=== PATIENT | male | born 1935 | race Caucasian/White ===

== ENCOUNTER → 2017-12-31 14:46 | Outpatient (CLI) | payer MEDICARE, MEDICAID, SELFPAY ==
[2017-12-31 15:12] LABS: Basophils # 0.1 K/mm3 (0-0.2); Basophils % 0.6 % (0.1-2.0); Eosinophils # 0.2 K/mm3 (0.0-0.4); Eosinophils % 1.5 % (0.1-12.0); Hematocrit 44.3 % (42.0-52.0); Hemoglobin 13.8 g/dL (14.1-18.0); Lymphocytes # 5.2 K/mm3 (0.7-4.5); Lymphocytes % 52.9 K/mm3 (10-50); Mean Corpuscular HGB Conc 31.1 g/dL (31.8-35.4); Mean Corpuscular Hemoglobin 28.8 pg (27.0-31.2); Mean Corpuscular Volume 92.8 fl (80-94); Mean Platelet Volume 7.6 fl (7.4-10.4); Monocytes # 0.4 K/mm3 (0.1-1.0); Monocytes % 3.6 % (1.7-9.3); Neutrophils # 4.1 K/mm3 (1.8-7.8); Neutrophils % 41.3 % (37.0-80.0); Platelet Count 181 K/mm3 (142-424); Red Blood Count 4.77 M/mm3 (4.60-6.20); Red Cell Distribution Width 14.1 % (11.5-17.5); White Blood Count 9.8 K/mm3 (4.8-10.8)
[2017-12-31 16:04] LABS: MANUAL DIFFERENTIAL MANUAL DIFFERENTIAL (MANUAL DIFF)
[2017-12-31 17:30] LABS: Potassium 5.1 mmoL/L (3.5-5.1)
[2017-12-31 17:53] LABS: Alanine Aminotransferase 14 U/L (12-78); Albumin Level 3.9 gm/dL (3.4-5.0); Albumin/Globulin Ratio 1.3 (1.1-1.8); Alkaline Phosphatase 101 U/L (46-116); Anion Gap 9.1 mEq/L (5-15); Aspartate Amino Transferase 11 U/L (15-37); Blood Urea Nitrogen 36 mg/dL (7-18); Calcium 9.1 mg/dL (8.5-10.1); Carbon Dioxide 33 mmol/L (21.0-32.0); Chloride 104 mmol/L (98-107); Chol/HDL Ratio 4.7 (1-3.5); Cholesterol 270 mg/dL (140-200); Creatine Kinase 42 U/L (39-308); Creatinine,Serum 2.34 mg/dL (0.70-1.30); Estimated Glomerular Filt Rate 27 ml/min (>60); Free Thyroxine Index 2.8 ug/dL (5.93-13.13); GFR (African American) 33 ML/MIN (>60); Globulin 3.1 gm/dl (1.3-3.2); Glucose 111 mg/dL (74-106); HDL Cholesterol 57 mg/dL (27-67); LDL Cholesterol 197 mg/dL (0-130); Sodium 141 mmol/L (136-145); T4 (Thyroxine) 8.1 ug/dl (4.7-13.3); Thyroid Stimulating Hormone 1.83 uIU/ml (0.358-3.740); Triglycerides 79 mg/dL (30-200); Triiodothryronine (T3) Uptake 34 % (31-39); VLDL Cholesterol 16 mg/dL (0-40)
[2017-12-31 18:29] LABS: Lymphocytes % 55 % (10-50); Monocytes % 1 % (2-9); Neutrophils % 44 % (42-76); Total Cells Counted 100
[2017-12-31 18:30] LABS: Platelet Estimate Normal; RBC Morphology Normal
[2018-01-05 06:15] LABS: Vitamin D 25 Hydroxy 26.2 ng/mL (30.0-100.0)
== END ==
PROVIDERS: Visit Provider Internal Medicine Adolescent Medicine
DX: R63.4 Abnormal weight loss (principal); I25.10 Atherosclerotic heart disease of native coronary artery without angina pectoris; M54.5 Low back pain
CPT/HCPCS: 36415; 80053; 80061; 82550; 82652; 84436; 84443; 84479; 85007; 85025

== ENCOUNTER → 2018-02-04 14:49 | Outpatient (CLI) | payer MEDICARE, MEDICAID, SELFPAY ==
--- NOTE | 2018-02-04 15:34 | XR_ITS ---
EXAM: XR lumbar spine min 4V HISTORY: ITS.REASON: LOW BACK PAIN,RT HIP PAIN ORDERING PHYSICIAN: Sid Foy MD PATIENT AGE: 82 years COMPARISON: None FINDINGS: There is degenerative disc disease within the lumbar spine from T12 to S1 worse at L2 L3 L3 L4 L4 L5 and L5-S1. There are endplate osteophytes these levels as well. Bridging osteophyte is present on the left at L2-L3. There is minimal lumbar curvature convex right. Facet sclerotic changes are present at L4-5 and L5-S1. There is mild anterolisthesis of L5 on S1 of 5 mm with bilateral pars defect at that level. No acute fracture or dislocation. There are surgical clips in right upper quadrant and left upper quadrant and there is an iliac artery stent on the left. IMPRESSION: 1. 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 2. 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
--- NOTE | 2018-02-04 15:34 | XR_ITS ---
XR hip RT 2-3V w/pelvis HISTORY: ITS.REASON: LOW BACK PAIN,RT HIP PAIN ORDERING PHYSICIAN: Sid Foy MD PATIENT AGE: 82 years COMPARISON: None FINDINGS: There are mild osteoarthritic changes of the right hip with slight decrease in joint space superiorly and minimal osteosclerosis of the acetabular roof. No fracture or dislocation. No lytic or blastic change. Atherosclerotic vascular calcification present IMPRESSION: Minimal osteoarthritis right hip
== END ==
PROVIDERS: PCP Internal Medicine Adolescent Medicine; Visit Provider Internal Medicine Adolescent Medicine
DX: M54.5 Low back pain (principal); M25.551 Pain in right hip; R63.4 Abnormal weight loss
CPT/HCPCS: 72110; 73502

== ENCOUNTER → 2018-02-22 10:00 | Outpatient (CLI) | payer MEDICARE, MEDICAID, SELFPAY ==
--- NOTE | 2018-02-22 10:03 | CT_ITS ---
CT chest wo con HISTORY: ITS.REASON: DYSPEA, WGT LOSS, ABD MASS ORDERING PHYSICIAN: Veronika Hadley PATIENT AGE: 82 years COMPARISON: none Technique: Axial images obtained with sagittal and coronal reformats. All CT scans at the facility use one or more dose reduction, viz: automated exposure control, ma/kV adjustment per patient size (including targeted exams where dose is matched to indication, i.e. head), or iterative reconstruction technique. FINDINGS: There is mild cardiomegaly. Coronary artery calcifications are present. There has been a prior CABG. Contrast is present within the esophagus and may be related to reflux. There is mild dilatation of the proximal descending thoracic aorta at 3.6 cm. The study is limited without IV contrast. There is a rind of increased soft tissue density along the right upper lobe anteriorly abutting the mediastinum. There is an oval 6 x 4 cm area of soft tissue density in the right lung base posteriorly with a few peripheral air bronchograms. This could represent mass or dense consolidation.. Small amount of loculated fluid is present on the right posteriorly with some mild pleural thickening. The left lung is clear. No acute bony anomalies. IMPRESSION: 1. Right lower lobe mass versus dense consolidation. Bronchoscopy may be of further value. 2. Complex pleural thickening in the right lung base posteriorly with small pleural effusion.] Increased soft tissue density is present in the right upper lobe medially. The chronicity of these findings is uncertain. This could be fibrotic changes or due to volume loss. Follow-up is recommended. 3. Prior CABG with cardiomegaly. 4. Contrast within the esophagus suggesting reflux
--- NOTE | 2018-02-22 10:03 | CT_ITS ---
CT abdomen pelvis wo con CLINICAL INDICATION: ITS.REASON: DYSPEA, WGT LOSS, ABD MASS ORDERING PHYSICIAN: Veronika Hadley PATIENT AGE: 82 years COMPARISON: None TECHNIQUE: Axial images obtained with sagittal and coronal reformats. All CT scans at the facility use one or more dose reduction, viz: automated exposure control, ma/kV adjustment per patient size (including targeted exams where dose is matched to indication, i.e. head), or iterative reconstruction technique. PROCEDURE: Oral Contrast: None IV Contrast: None . FINDINGS: There has been prior cholecystectomy. The liver, spleen, adrenal glands, and left kidney are unremarkable. 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 There is pancreatic atrophy. There is a mild amount retained colonic feces. No renal or ureteral calculi. No evidence of appendicitis or diverticulitis. No intestinal obstruction or free air. There are scattered diverticula within the colon. No aortic aneurysm. No abdominal mass or abnormal fluid collection. No abdominal masses are evident. There are mild adjacent changes of the lumbar spine. IMPRESSION: 1. No acute finding. 2. Right renal atrophy and pancreatic atrophy. 3. No abdominal mass or abnormal fluid collection.
== END ==
PROVIDERS: Family Provider Internal Medicine Adolescent Medicine; PCP Internal Medicine Adolescent Medicine; Visit Provider Nurse Practitioner Family
DX: R63.4 Abnormal weight loss (principal); R19.01 Right upper quadrant abdominal swelling, mass and lump; R06.09 Other forms of dyspnea
CPT/HCPCS: 71250; 74176

== ENCOUNTER 2018-04-17 17:29 | Inpatient (IN) ==
[2018-04-17 18:12] LABS: Basophils % 0.4 % (0.1-2.0); Eosinophils % 0.3 % (0.1-12.0); Hematocrit 43.1 % (42.0-52.0); Hemoglobin 12.8 g/dL (14.1-18.0); Lymphocytes # 2.6 K/mm3 (0.7-4.5); Lymphocytes % 35.3 K/mm3 (10-50); Mean Corpuscular HGB Conc 29.7 g/dL (31.8-35.4); Mean Corpuscular Hemoglobin 29.5 pg (27.0-31.2); Mean Corpuscular Volume 99.5 fl (80-94); Mean Platelet Volume 8.8 fl (7.4-10.4); Monocytes # 0.3 K/mm3 (0.1-1.0); Monocytes % 3.8 % (1.7-9.3); Neutrophils # 4.4 K/mm3 (1.8-7.8); Neutrophils % 60.2 % (37.0-80.0); Platelet Count 134 K/mm3 (142-424); Red Blood Count 4.33 M/mm3 (4.60-6.20); Red Cell Distribution Width 13.4 % (11.5-17.5); White Blood Count 7.3 K/mm3 (4.8-10.8)
[2018-04-17 18:27] LABS: Albumin Level 3.8 gm/dL (3.4-5.0); Anion Gap 1.1 mEq/L (5-15); Calcium 9.3 mg/dL (8.5-10.1); Globulin 3.7 gm/dl (1.3-3.2); Potassium 5.6 mmoL/L (3.5-5.1); Total Protein,Serum 7.5 gm/dL (6.4-8.2)
[2018-04-17 18:37] LABS: Thyroid Stimulating Hormone 2.06 uIU/ml (0.358-3.740)
[2018-04-17 18:51] LABS: Free Thyroxine Index 2.9 ug/dL (5.93-13.13); T4 (Thyroxine) 8.1 ug/dl (4.7-13.3)
--- NOTE | 2018-04-17 19:43 | Emergency Department Note ---
ED Disposition Clinical Impression: Acute respiratory failure with hypoxia and hypercapnia, Precordial chest pain Congestive heart failure Qualifiers: Heart failure type: unspecified Heart failure chronicity: acute Qualified Code(s): I50.9 - Heart failure, unspecified Disposition: Still a Patient Condition on Discharge: Serious Referrals: Sid Foy MD [Primary Care Provider] - - Critical Care Critical Care Time: Yes Attestation: On 04/17/18, the high probability of a clinically significant, sudden or life threatening deterioration of the following system(s) required my full and direct attention, intervention and personal management. The time I documented below is in addition to time spent performing reported procedures but includes the following listed in this critical care notation. Total Critical Care Time: 40 Vital system(s) involved:: Respiratory Failure My critical care processes included: Assessment & monitoring of V/S, Initial and Re-exams, Data Review/Interpretation, Coordinating Care, Medication Orders and management, Documentation Medical Decision Making - Mynor Inquiry Pt receiving controlled substance: Yes Mynor was queried for this patient: No Reason not queried -: Emergent pt cond-no time Risks and benefits of using a controlled substance: were not discussed with pt by me Vital Signs: 04/17/18 17:27 04/17/18 17:57 04/17/18 18:00 Temperature 98.3 F 98.3 F Temperature Source Oral Oral Pulse Rate [Right Brachial] 94 H 88 92 H Respiratory Rate 28 H Blood Pressure [Right Arm] 152/82 H 138/96 H 160/92 H Blood Pressure Mean [Right Arm] 105 110 114 Blood Pressure Source [Right Arm] Automatic Cuff Automatic Cuff Automatic Cuff Blood Pressure Position [Right Arm] Sitting Sitting Sitting 02 Sat by Pulse Oximetry 98 100 93 L Oxygen Delivery Method Nasal Cannula Non-Rebreather Non-Rebreather Oxygen Flow Rate (LPM) 5 04/17/18 18:30 04/17/18 20:15 04/17/18 20:51 Temperature Temperature Source Pulse Rate [Right Brachial] 91 H 87 Respiratory Rate 14 Blood Pressure [Right Arm] 149/80 H 149/81 H 149/81 H Blood Pressure Mean [Right Arm] 103 103 103 Blood Pressure Source [Right Arm] Automatic Cuff Blood Pressure Position [Right Arm] Sitting 02 Sat by Pulse Oximetry 100 98 Oxygen Delivery Method Non-Rebreather BiPAP Oxygen Flow Rate (LPM) 04/17/18 21:07 11/04/18 21:30 Temperature Temperature Source Pulse Rate [Right Brachial] 78 77 Respiratory Rate 20 20 Blood Pressure [Right Arm] 136/66 120/63 Blood Pressure Mean [Right Arm] 89 82 Blood Pressure Source [Right Arm] Automatic Cuff Automatic Cuff Blood Pressure Position [Right Arm] Sitting Supine 02 Sat by Pulse Oximetry 99 99 Oxygen Delivery Method BiPAP BiPAP Oxygen Flow Rate (LPM) - Lab Data Lab Results 04/17/18 17:55: WBC 7.3, RBC 4.33 L, Hgb 12.8 L, Hct 43.1, MCV 99.5 H, MCH 29.5, MCHC 29.7 L, RDW 13.4, Plt Count 134 L, MPV 8.8, Neut % (Auto) 60.2, Lymph % (Auto) 35.3, [place] % (Auto) 3.8, Eos % (Auto) 0.3, Baso % (Auto) 0.4, Neut # (Auto) 4.4, Lymph # (Auto) 2.6, [place] # (Auto) 0.3, Eos # (Auto) 0.0, Baso # (Auto) 0.0 04/17/18 17:55: Sodium 138, Potassium 5.6 H, Chloride 99, Carbon Dioxide 38 H, Anion Gap 1.1 L, BUN 39 H, Creatinine 2.21 H, Estimated Creat Clear 27, Estimated GFR 29 L, Est GFR ( Amer) 35 L, Glucose 115 H, Calcium 9.3, Total Bilirubin 1.0, AST 11 L, ALT 13, Alkaline Phosphatase 98, Total Creatine Kinase 51, CK-MB (CK-2) 1.2, CK-MB (CK-2) Rel Index 2.4, Troponin I 0.08 H, Total Protein 7.5, Albumin 3.8, Globulin 3.7 H, Albumin/Globulin Ratio 1.0 L 04/17/18 17:55: B-Natriuretic Peptide 1750 H 04/17/18 17:55: TSH 2.06, Free T4 Index 2.9 L, Thyroxine (T4) 8.1, T3 Uptake 36 04/17/18 20:30: Lactate 0.4 04/17/18 20:47: Specimen Source R/f, O2 % 100, ABG pH 7.17 L*, ABG pCO2 123.5 H, ABG pO2 113.1 H, ABG HCO3 44.0 H, ABG Total CO2 47.8 H, ABG O2 Saturation 98, ABG Base Excess 15.5 H, Ousmane Test Y Result diagrams: 04/17/18 17:55 04/17/18 17:55 Orders (Tests/Meds): ED MEDICATIONS Generic Name Dose Route Start Last Admin Trade Name Freq PRN Reason Stop Dose Admin Nitroglycerin 0.4 mg 04/17/18 20:07 04/17/18 20:15 Nitrostat 0.4mg Sl Tablet SL 05/17/18 20:06 0.4 mg Q5MINP PRN Administration Chest Pain Discontinued Medications Generic Name Dose Route Start Last Admin Trade Name Freq PRN Reason Stop Dose Admin Aspirin 324 mg 04/17/18 20:42 04/17/18 20:53 Aspirin 81mg Chewable Tablet PO 04/17/18 20:43 324 mg ONCE ONE Administration Furosemide 80 mg 04/17/18 20:46 04/17/18 20:54 Lasix 40mg/4ml Vial IV 04/17/18 20:47 80 mg ONCE ONE Administration Morphine Sulfate 4 mg 04/17/18 20:08 04/17/18 20:15 Morphine 4mg/Ml Syringe IV 04/17/18 20:09 4 mg ONCE ONE Administration Nitroglycerin 1 gm 04/17/18 20:18 04/17/18 20:53 Nitroglycerin 1 Inch Oint Udp TD 04/17/18 20:19 1 gm ONCE ONE Administration ORDERS Category Date Time Status XR chest portable Stat Exams 04/17/18 18:02 Taken Blood Culture Stat Micro 04/17/18 20:30 Received ABG [Arterial Blood Gas] Stat RT 04/17/18 18:02 Ordered - Physician Consults Physician Consulted: Emely Foy Time: 21:30 Reason -: Admission Comment/Response: Agrees to admit the patient to the hospital. We discussed the patient's clinical information, including history, exam, laboratory and radiology results and ED course. Per hospital procedure, I will write temporary bridge inpatient orders on the patient. Specific orders requested by the admitting physician: Continue BiPAP, repeat Lasix 80 mg in 6 hours. Repeat ABGs in 6 hours. Medical Decision Narrative: Discussed advanced directives with the patient. He states that he does not want to be intubated or put on a ventilator, but indicates he would want chest compressions, medications, and cardioversion/defibrillation if needed. 9:10 PM: States breathing feels better on BiPAP. 9:50 PM: Family reports patient is now DNR. General Adult HPI - General Chief complaint: Shortness of Breath/Dyspnea Stated complaint: WEAKNESS Time Seen by Provider: 04/17/18 19:45 Mode of Arrival: EMS Limitations: No Limitations Description of Symptoms (Recalled from ER Triage Doc. by RN): INCREASINGLY PROGRESSIVE WEAKNESS; PT STATES HE HASN'T BEEN ABLE TO TAKE IN MUCH INTAKE DUE TO SOA R/T LUNG MASS. FAMILY THINKS HE MIGHT HAVE HAD A STROKE. - History of Present Illness HPI narrative: Brought in for generalized weakness and difficulty breathing. Family states that he has had a decline since March 14 at which time he was diagnosed with a right lung mass. He recently had a bronchoscopy at which time he developed hypoxia and required an overnight stay. He was discharged and then on 3 days ago had a right lung biopsy as an outpatient. Procedures were done at [facility]. Family states that surgeons they have told him that he has an inoperable lung mass. Tissue type is not known, but they have told him that he should be enrolled in hospice. They have advised that chemotherapy or radiation would likely be more harmful than helpful given his chronic problems with heart and kidney disease. He is getting progressively weaker, requiring assistance to even walk to the bathroom. Increasingly short of breath. He is having chest pain and taking nitroglycerin every 30-60 minutes for the past few days. Nausea. One episode of diarrhea this morning, but had constipation yesterday and was given a stool softener. Denies fever. He does have a cough. 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 - Related Data Home Medications Medication Instructions Recorded Confirmed Amlodipine Besylate 1 tab PO DAILY 04/17/18 04/17/18 Nitroglycerin 1 tab PO DAILY 04/17/18 04/17/18 Ranolazine [Ranexa 500mg ER tablet] 1 tab PO DAILY 04/17/18 04/17/18 Tamsulosin HCl [Flomax 0.4mg 1 dose PO DAILY 04/17/18 04/17/18 capsule] Torsemide [Demadex 20mg tablet] 1 dose PO DIRECTED 04/17/18 04/17/18 Allergies Allergy/AdvReac Type Severity Reaction Status Date / Time isosorbide Allergy Unknown Verified 04/17/18 20:08 [facility] History I have reviewed the patient's past medical history: Yes ROS Obtained: Yes other (Limited due to his poor medical condition, primarily obtained from family) - Constitutional Constitutional: Reports fatigue, Denies fever(s), Reports poor appetite, Reports lethargy, Reports malaise, Reports weakness - Cardiovascular Cardiovascular: Reports chest pain, Reports edema (Swelling of legs and feet) - Respiratory Respiratory: Yes cough, Yes dyspnea, No coughing up blood - Gastrointestinal Gastrointestingal: Reports: nausea, vomiting. Denies: abdominal pain Physical Exam - General General appearance: other Comment: Appears drowsy, but answers questions appropriately. Appears very fatigued. Tachypneic. On nonrebreather oxygen, dusky color when he takes it off. - Head Head exam: atraumatic, normocephalic - Eye Eye exam: Present: normal appearance - ENT ENT exam: Present: normal exam - Neck Neck exam: Present: normal inspection, trachea midline - Chest Chest inspection: Present: normal inspection - Respiratory Respiratory exam: Present: other (Decreased breath sounds and crackles bilaterally) - Cardiovascular Cardiovascular exam: Present: regular rate, normal rhythm - Abdominal Exam Abdominal exam: Present: soft. Absent: distention, tenderness - Extremities Exam Extremities exam: Present: pedal edema (3+) - Neurological Exam Neurological exam: Present: CN II-XII intact, other (Generally weak, but no focal deficits) - Psychiatric Psychiatric exam: Present: flat affect - Skin Skin exam: Present: warm, dry
[2018-04-17 20:48] LABS: ABG Base Excess 15.5 mmol/L (-2.4-2.3); ABG Oxygen Saturation 98 % (90-100); ABG PO2 113.1 mmhg (80-100); ABG TCO2 47.8 mmhg (23-27)
[2018-04-17 20:49] LABS: Allen's Test Y; Oxygen 100 %
[2018-04-17 20:50] LABS: ABG PCO2 123.5 mmhg (35.0-45.0); ABG PH 7.17 mmol/L (7.35-7.45)
[2018-04-18 03:51] LABS: ABG Base Excess 12.1 mmol/L (-2.4-2.3); ABG HCO3 40.2 mmhg (22.0-26.0); ABG Oxygen Saturation 97 % (90-100); ABG PO2 98.6 mmhg (80-100); ABG TCO2 43.4 mmhg (23-27); Oxygen 50 %
[2018-04-18 03:52] LABS: ABG PCO2 104.9 mmhg (35.0-45.0); Allen's Test Y
[2018-04-18 07:23] LABS: Anion Gap 6.7 mEq/L (5-15); Calcium 9.1 mg/dL (8.5-10.1); Potassium 5.7 mmoL/L (3.5-5.1)
--- NOTE | 2018-04-18 07:30 | Pharmacy Consult Notes ---
[facility] Pharmacy VTE Monitoring - Patient Demographics Admission date: 04/17/18 Report Date: 04/18/18 Time: 07:29 Allergies/Adverse Reactions: Patient Allergies isosorbide Allergy (Unknown, Verified 04/17/18 20:08) Height: 1.9 m Weight: 84.453 kg Patient Problems: Current Active Problems Acute respiratory failure with hypoxia and hypercapnia (Acute) Congestive heart failure (Acute) Precordial chest pain (Acute) - VTE Risk Labs: VTE Related Lab Results Hgb 12.8 g/dL (14.1-18.0) L 04/17/18 17:55 Hct 43.1 % (42.0-52.0) 04/17/18 17:55 Plt Count 134 K/mm3 (142-424) L 04/17/18 17:55 BUN 44 mg/dL (7-18) H 04/18/18 06:55 Creatinine 2.40 mg/dL (0.70-1.30) H 04/18/18 06:55 Estimated Creat Clear 29 mL/min (0-300) 04/18/18 06:55 Was VTE Risk Assessment Performed: Yes VTE Risk Level: Moderate Risk - Prophylaxis VTE Prophylaxis Ordered?: Yes Types of VTE Prophylaxis: TEDS Knee High Location of Applied Device: Bilateral Lower Extremeties - VTE Diagnosis Confirmed Treatment or plan recommended: Continue Current Treatment
--- NOTE | 2018-04-18 09:00 | History & Physical Report ---
*Admission Date: 04/17/18 *Chief complaint: Respiratory distress *History of present illness: 82-year-old white male with history of lung mass, diagnosed about 2 months ago and in workup with [facility] surgery group. Patient had bronchoscopy and biopsy done on March 21, lab and biopsy results I received in my office if so far been nondiagnostic but apparently the question has been raised of inadequate biopsy. Apparently patient went back to CT surgery group and was told late last week that he had "an inoperable tumor and needed hospice care." The patient's family has been working on this referral, but patient worsened in regards to respiratory status over the last 24 hours and came to the emergency department yesterday late evening. Please see ER notes for details, briefly patient was found to have different respiratory distress, respiratory acidosis and ventilatory failure. Placed on BiPAP, DNR status was confirmed with family and patient was admitted to floor. This morning the patient is on BiPAP, very lethargic and fatigued appearing. Is able to communicate that he is having some anterior chest pain with respirations and feels "no better." [facility] History I have reviewed the patient's past medical history: Yes Medical History: Reports:: Cancer (lung mass), Congestive Heart Failure Denies:: Diabetes Mellitus Type 1, Diabetes Mellitus Type 2, MRSA Amputation: No Fractures: No - *Social History Alcohol Intake: never Occupational Status: retired - Psychiatric History Expresses thoughts of harming self/others: None Suicide Plan Description: No Plan *Family Hx:: Unable to obtain Review of Systems - Review of Systems Review of systems:: unable to obtain Is unable to give a detailed review of systems because of his respiratory insufficiency. Please see HPI. - *Neurologic Reports weakness Meds Home Medications Medication Instructions Recorded Confirmed Type Amlodipine Besylate 5 mg PO DAILY 04/17/18 04/18/18 History Nitroglycerin 1 tab PO DAILY 04/17/18 04/17/18 History Ranolazine [Ranexa 500mg ER tablet] 1 tab PO DAILY 04/17/18 04/17/18 History Tamsulosin HCl [Flomax 0.4mg 1 dose PO DAILY 04/17/18 04/17/18 History capsule] Torsemide [Demadex 20mg tablet] 1 dose PO DIRECTED 04/17/18 04/17/18 History Allergies Allergy/AdvReac Type Severity Reaction Status Date / Time isosorbide Allergy Unknown Verified 04/17/18 20:08 Exam Vital signs and Labs for Last 24 Hours: Temp Pulse Resp BP Pulse Ox 98.2 F 82 20 140/74 96 04/18/18 07:27 04/18/18 07:27 04/18/18 07:27 04/18/18 07:27 04/18/18 07:27 Laboratory Results - last 24 hr 04/17/18 17:55: WBC 7.3, RBC 4.33 L, Hgb 12.8 L, Hct 43.1, MCV 99.5 H, MCH 29.5, MCHC 29.7 L, RDW 13.4, Plt Count 134 L, MPV 8.8, Neut % (Auto) 60.2, Lymph % (Auto) 35.3, [place] % (Auto) 3.8, Eos % (Auto) 0.3, Baso % (Auto) 0.4, Neut # (Auto) 4.4, Lymph # (Auto) 2.6, [place] # (Auto) 0.3, Eos # (Auto) 0.0, Baso # (Auto) 0.0 04/17/18 17:55: Sodium 138, Potassium 5.6 H, Chloride 99, Carbon Dioxide 38 H, Anion Gap 1.1 L, BUN 39 H, Creatinine 2.21 H, Estimated Creat Clear 27, Estimated GFR 29 L, Est GFR ( Amer) 35 L, Glucose 115 H, Calcium 9.3, Total Bilirubin 1.0, AST 11 L, ALT 13, Alkaline Phosphatase 98, Total Creatine Kinase 51, CK-MB (CK-2) 1.2, CK-MB (CK-2) Rel Index 2.4, Troponin I 0.08 H, Total Protein 7.5, Albumin 3.8, Globulin 3.7 H, Albumin/Globulin Ratio 1.0 L 04/17/18 17:55: B-Natriuretic Peptide 1750 H 04/17/18 17:55: TSH 2.06, Free T4 Index 2.9 L, Thyroxine (T4) 8.1, T3 Uptake 36 04/17/18 20:30: Lactate 0.4 04/17/18 20:47: Specimen Source R/f, O2 % 100, ABG pH 7.17 L*, ABG pCO2 123.5 H, ABG pO2 113.1 H, ABG HCO3 44.0 H, ABG Total CO2 47.8 H, ABG O2 Saturation 98, ABG Base Excess 15.5 H, Ousmane Test Y 04/18/18 01:35: Troponin I 0.08 H 04/18/18 03:50: Specimen Source L/r, O2 % 50, ABG pH 7.20 L*, ABG pCO2 104.9 H, ABG pO2 98.6, ABG HCO3 40.2 H, ABG Total CO2 43.4 H, ABG O2 Saturation 97, ABG Base Excess 12.1 H, Ousmane Test Y, Vent Rate 18 04/18/18 04:10: Troponin I 0.08 H 04/18/18 06:55: Sodium 138, Potassium 5.7 H, Chloride 99, Carbon Dioxide 38 H, Anion Gap 6.7, BUN 44 H, Creatinine 2.40 H, Estimated Creat Clear 29, Estimated GFR 26 L, Est GFR ( Amer) 32 L, Glucose 140 H D, Calcium 9.1 I & O for Last 24 hours: Intake & Output 04/15/18 04/16/18 04/17/18 04/18/18 12:59 12:59 11:59 11:59 Weight 186 lb 3 oz Narrative: Patient is on BiPAP, is unable to take significant breaths and any kind of a deep fashion. Minimally verbal. Does seem to be alert, does respond to commands, very weak in his extremities but is able to move all extremities symmetrically. Graph air movement is poor in the anterior lung olson. Lots of rhonchi and crackles throughout. Heart rate regular. Perfusion is diminished but present in all 4 extremities. Abdomen soft and nontender, no masses. No jaundice or scleral icterus. Exam reveals clear oropharynx, no JVD. Assessment and Plan (1) Pulmonary mass Current visit: Yes Status: Acute Category: Medical Code(s): R91.8 - Other nonspecific abnormal finding of lung field Report from family apparently gets malignancy. I do not have actual documentation of this and we will try to get him documentation from [facility] regarding more recent body reports. Regardless, patient has an extremely poor prognosis. I agree with hospice care. Given patient's significant pulmonary insufficiency he may need transfer to hospice care center for full symptom management. (2) Acute respiratory failure with hypoxia and hypercapnia Current visit: Yes Status: Acute Category: Medical Code(s): J96.01 - Acute respiratory failure with hypoxia; J96.02 - Acute respiratory failure with hypercapnia (3) Precordial chest pain Current visit: Yes Status: Acute Category: Medical Code(s): R07.2 - Precordial pain
--- NOTE | 2018-04-18 15:57 | Discharge Summary ---
General - General Admission date:: 04/17/18 Discharge date: 04/18/18 HPI HPI: 82-year-old white male with history of lung mass, diagnosed about 2 months ago and in workup with [facility] CT surgery group. Patient had bronchoscopy and biopsy done on March 21, lab and biopsy results I received in my office if so far been nondiagnostic but apparently the question has been raised of inadequate biopsy. Apparently patient went back to CT surgery group and was told late last week that he had "an inoperable tumor and needed hospice care." The patient's family has been working on this referral, but patient worsened in regards to respiratory status over the last 24 hours and came to the emergency department yesterday late evening. Please see ER notes for details, briefly patient was found to have different respiratory distress, respiratory acidosis and ventilatory failure. Placed on BiPAP, DNR status was confirmed with family and patient was admitted to floor. This morning the patient is on BiPAP, very lethargic and fatigued appearing. Is able to communicate that he is having some anterior chest pain with respirations and feels "no better." Hospital Course Hospital Course: Patient was admitted... discussed case with daughters through care management service. They had already initiated hospice eval, and I agree with this. Hospice picked up patient, and [facility] [place] [facility] for further symptoms management. Objective Vital signs: Temp Pulse Resp BP Pulse Ox 98.2 F 80 20 113/59 L 96 04/18/18 15:18 04/18/18 15:18 04/18/18 15:18 04/18/18 15:18 04/18/18 15:18 moderate distress, chronically ill appearing - *Routine HEENT Exam Head: Present: atraumatic ENT: Present: mucous membranes moist, dentition normal - *Routine Respiratory Exam Present: accessory muscle use, prolonged expiratory phase, respiratory distress, rhonchi, wheezes - *Routine Cardiovascular Exam Present: RRR, murmur - *Routine Abdominal Exam Present: soft, normoactive bowel sounds - *Routine Extremities Exam Present: edema (in ankles), pallor - *Routine Neurological Exam Present: altered mental status (lethargic and somnolent) Results Labs on day of discharge: Labs from last 24 hours 04/18/18 04/18/18 04/18/18 06:55 04:10 03:50 WBC RBC Hgb Hct MCV MCH MCHC RDW Plt Count MPV Neut % (Auto) Lymph % (Auto) Dukes % (Auto) Eos % (Auto) Baso % (Auto) Neut # (Auto) Lymph # (Auto) Dukes # (Auto) Eos # (Auto) Baso # (Auto) Specimen Source L/r O2 % 50 ABG pH 7.20 L* ABG pCO2 104.9 H ABG pO2 98.6 ABG HCO3 40.2 H ABG Total CO2 43.4 H ABG O2 Saturation 97 ABG Base Excess 12.1 H Ousmane Test Y Vent Rate 18 Sodium 138 Potassium 5.7 H Chloride 99 Carbon Dioxide 38 H Anion Gap 6.7 BUN 44 H Creatinine 2.40 H Estimated Creat Clear 29 Estimated GFR 26 L Est GFR ( Amer) 32 L Glucose 140 H D Lactate Calcium 9.1 Total Bilirubin AST ALT Alkaline Phosphatase Total Creatine Kinase CK-MB (CK-2) CK-MB (CK-2) Rel Index Troponin I 0.08 H B-Natriuretic Peptide Total Protein Albumin Globulin Albumin/Globulin Ratio TSH Free T4 Index Thyroxine (T4) T3 Uptake 04/18/18 04/17/18 04/17/18 01:35 20:47 20:30 WBC RBC Hgb Hct MCV MCH MCHC RDW Plt Count MPV Neut % (Auto) Lymph % (Auto) Dukes % (Auto) Eos % (Auto) Baso % (Auto) Neut # (Auto) Lymph # (Auto) Dukes # (Auto) Eos # (Auto) Baso # (Auto) Specimen Source R/f O2 % 100 ABG pH 7.17 L* ABG pCO2 123.5 H ABG pO2 113.1 H ABG HCO3 44.0 H ABG Total CO2 47.8 H ABG O2 Saturation 98 ABG Base Excess 15.5 H Ousmane Test Y Vent Rate Sodium Potassium Chloride Carbon Dioxide Anion Gap BUN Creatinine Estimated Creat Clear Estimated GFR Est GFR ( Amer) Glucose Lactate 0.4 Calcium Total Bilirubin AST ALT Alkaline Phosphatase Total Creatine Kinase CK-MB (CK-2) CK-MB (CK-2) Rel Index Troponin I 0.08 H B-Natriuretic Peptide Total Protein Albumin Globulin Albumin/Globulin Ratio TSH Free T4 Index Thyroxine (T4) T3 Uptake 04/17/18 04/17/18 04/17/18 17:55 17:55 17:55 WBC RBC Hgb Hct MCV MCH MCHC RDW Plt Count MPV Neut % (Auto) Lymph % (Auto) Dukes % (Auto) Eos % (Auto) Baso % (Auto) Neut # (Auto) Lymph # (Auto) Dukes # (Auto) Eos # (Auto) Baso # (Auto) Specimen Source O2 % ABG pH ABG pCO2 ABG pO2 ABG HCO3 ABG Total CO2 ABG O2 Saturation ABG Base Excess Ousmane Test Vent Rate Sodium 138 Potassium 5.6 H Chloride 99 Carbon Dioxide 38 H Anion Gap 1.1 L BUN 39 H Creatinine 2.21 H Estimated Creat Clear 27 Estimated GFR 29 L Est GFR ( Amer) 35 L Glucose 115 H Lactate Calcium 9.3 Total Bilirubin 1.0 AST 11 L ALT 13 Alkaline Phosphatase 98 Total Creatine Kinase 51 CK-MB (CK-2) 1.2 CK-MB (CK-2) Rel Index 2.4 Troponin I 0.08 H B-Natriuretic Peptide 1750 H Total Protein 7.5 Albumin 3.8 Globulin 3.7 H Albumin/Globulin Ratio 1.0 L TSH 2.06 Free T4 Index 2.9 L Thyroxine (T4) 8.1 T3 Uptake 36 04/17/18 17:55 WBC 7.3 RBC 4.33 L Hgb 12.8 L Hct 43.1 MCV 99.5 H MCH 29.5 MCHC 29.7 L RDW 13.4 Plt Count 134 L MPV 8.8 Neut % (Auto) 60.2 Lymph % (Auto) 35.3 Dukes % (Auto) 3.8 Eos % (Auto) 0.3 Baso % (Auto) 0.4 Neut # (Auto) 4.4 Lymph # (Auto) 2.6 Dukes # (Auto) 0.3 Eos # (Auto) 0.0 Baso # (Auto) 0.0 Specimen Source O2 % ABG pH ABG pCO2 ABG pO2 ABG HCO3 ABG Total CO2 ABG O2 Saturation ABG Base Excess Ousmane Test Vent Rate Sodium Potassium Chloride Carbon Dioxide Anion Gap BUN Creatinine Estimated Creat Clear Estimated GFR Est GFR ( Amer) Glucose Lactate Calcium Total Bilirubin AST ALT Alkaline Phosphatase Total Creatine Kinase CK-MB (CK-2) CK-MB (CK-2) Rel Index Troponin I B-Natriuretic Peptide Total Protein Albumin Globulin Albumin/Globulin Ratio TSH Free T4 Index Thyroxine (T4) T3 Uptake DS: Diagnosis - Discharge Diagnosis (1) Pulmonary mass Status: Acute (2) Acute respiratory failure with hypoxia and hypercapnia Status: Acute (3) Precordial chest pain Status: Acute Discharge Plan - Patient Discharge Instructions ACTIVITY: Bed rest DIET: continue same diet - Follow up Plan Unknown provider or service follow up:: 04/18/18 15:57 Hospice Inpatient Facility Disposition: Hospice - Medical Facility Home Medications: Home Medications Medication Instructions Recorded Confirmed Type Amlodipine Besylate 5 mg PO DAILY 04/17/18 04/18/18 History Nitroglycerin 0.4 mg PO Q5MINP PRN 04/17/18 04/18/18 History Ranolazine [Ranexa 500mg ER tablet] 500 mg PO BID 04/17/18 04/18/18 History Tamsulosin HCl [Flomax 0.4mg 0.4 mg PO DAILY 04/17/18 04/18/18 History capsule] Torsemide [Demadex 20mg tablet] 20 mg PO DAILY 04/17/18 04/18/18 History Prescriptions/Medication Reconciliation: Discontinued Tamsulosin HCl [Flomax 0.4mg capsule] 0.4 mg PO DAILY Ranolazine [Ranexa 500mg ER tablet] 500 mg PO BID Nitroglycerin 0.4 mg PO Q5MINP PRN PRN Reason: Chest Pain Torsemide [Demadex 20mg tablet] 20 mg PO DAILY Amlodipine Besylate 5 mg PO DAILY
== END 2018-04-18 16:37 | disposition hospice, inpatient (51) ==
LOC: ER 17:29 → 2ND 21:48
PROVIDERS: ADMIT Internal Medicine Adolescent Medicine; ATTEND Internal Medicine Adolescent Medicine